=== PATIENT | female | born 1960 ===

== ENCOUNTER 2020-10-03 18:31 | Emergency (ER) | payer SELFPAY ==
[~2020-10-03] VITALS: Ht 157.5 cm; Wt 61.2 kg
[2020-10-03] MEDS: ONDANSETRON ODT 4 MG TAB.RAPDIS SL ONE (19:10)
[2020-10-03] MEDS ORDERED: ONDANSETRON ODT 4 MG TAB.RAPDIS ONE (19:15)
== END 2020-10-03 19:25 | disposition home or self-care (01) ==
LOC: ER 18:34
DX: S13.9XXA Sprain of joints and ligaments of unspecified parts of neck, initial encounter (principal); V43.52XA Car driver injured in collision with other type car in traffic accident, initial encounter; Y92.411 Interstate highway as the place of occurrence of the external cause
CPT/HCPCS: A4663; Q0162